=== PATIENT | male | born 1970 | race Caucasian/White ===

== ENCOUNTER 2019-10-29 23:01 | Inpatient (IN) | payer OTHER ==
[~2019-10-29] VITALS: Ht 190.5 cm; Wt 140.6 kg
[2019-10-29 23:31] LABS: BASO # 0.1 10^3/uL (0.0-0.2); BASO % 0.6 % (0.0-1.0); EOS # 0.3 10^3/uL (0.0-0.5); EOS % 1.8 % (0.0-3.0); HEMATOCRIT 53.5 % (42.0-52.0); HEMOGLOBIN 17.8 g/dl (13.5-17.5); LYMPH # 4.4 10^3/uL (1.5-5.0); LYMPH % 27.7 % (24.0-44.0); MEAN CORPUSCULAR HEMOGLOBIN 28.4 pg (27.0-33.0); MEAN CORPUSCULAR HGB CONC 33.3 g/dl (32.0-36.5); MEAN CORPUSCULAR VOLUME 85.3 fl (80.0-96.0); MONO % 6.1 % (0.0-5.0); NEUTROPHILS % 63.1 % (36.0-66.0); PLATELET COUNT, AUTOMATED 220 10^3/uL (150-450); RED BLOOD COUNT 6.27 10^6/uL (4.30-6.10); WHITE BLOOD COUNT 15.8 10^3/uL (4.0-10.0)
[2019-10-30] MEDS ORDERED: NS 500 ML IV ONE
--- NOTE | 2019-10-30 00:16 | REPVR ---
PROCEDURE INFORMATION: Exam: CT Head Without Contrast Exam date and time: 10/29/2019 11:53 PM Age: 48 years old Clinical indication: Altered mental status/memory loss; Confusion or disorientation; Additional info: Dysarthria TECHNIQUE: Imaging protocol: Computed tomography of the head without contrast. Radiation optimization: All CT scans at this facility use at least one of these dose optimization techniques: automated exposure control; mA and/or kV adjustment per patient size (includes targeted exams where dose is matched to clinical indication); or iterative reconstruction. COMPARISON: No relevant prior studies available. FINDINGS: Brain: No intracranial hemorrhage or extra-axial fluid collection. No evidence of mass effect or midline shift. Sanchez-white matter differentiation is intact. Ventricles: No ventriculomegaly. Bones/joints: No acute osseus lesion or fracture. Sinuses: Unremarkable as visualized. Mastoid air cells: Unremarkable. Soft tissues: Unremarkable. IMPRESSION: No acute intracranial pathology. Electronically signed by: Chet Callahan On 10/30/2019 00:15:58 AM
[2019-10-30 00:45] LABS: ALT/SGPT 38 U/L (12-78); BILIRUBIN,DIRECT 0.1 MG/DL (0.0-0.2); BILIRUBIN,TOTAL 0.4 MG/DL (0.2-1.0); BLOOD UREA NITROGEN 16 MG/DL (7-18); CALCIUM LEVEL 9.1 MG/DL (8.5-10.1); CARBON DIOXIDE LEVEL 25 MEQ/L (21-32); CHLORIDE LEVEL 107 MEQ/L (98-107); CREATININE FOR GFR 1.02 MG/DL (0.70-1.30); ETHYL ALCOHOL (ETHANOL) < 0.003 % (0.000-0.010); GLOMERULAR FILTRATION RATE > 60.0 (>60); GLUCOSE, FASTING 156 MG/DL (70-100); POTASSIUM SERUM 3.7 MEQ/L (3.5-5.1); SODIUM LEVEL 138 MEQ/L (136-145)
[2019-10-30] MEDS ORDERED: ASPIRIN 325 MG TAB PO ONE (01:30)
[2019-10-30] MEDS ORDERED: DULO1CAP5 PO (01:48)
[2019-10-30] MEDS ORDERED: VENL37.598 PO (01:48)
[2019-10-30] MEDS ORDERED: IRBE300T7 PO (01:48)
[2019-10-30] MEDS ORDERED: AMLO1TAB25 PO (01:48)
[2019-10-30] MEDS ORDERED: ROSU40TA4 PO (01:48)
[2019-10-30] MEDS ORDERED: OMEP-221 PO (01:48)
[2019-10-30] MEDS ORDERED: GABA600T4 PO (01:48)
[2019-10-30] MEDS ORDERED: METO1TAB33 PO (01:48)
[2019-10-30] MEDS ORDERED: METF-838 PO (01:48)
[2019-10-30] MEDS ORDERED: STEG15TA PO (01:48)
[2019-10-30] MEDS ORDERED: XARE10TA PO (01:48)
[2019-10-30] MEDS ORDERED: D31000TA2 PO (02:06)
[2019-10-30] MEDS ORDERED: OMEG10002 PO (02:06)
[2019-10-30] MEDS ORDERED: OMEPRAZOLE 20 MG CAP PO ONE (02:15)
--- NOTE | 2019-10-30 02:19 | HPEPDOC ---
General Date of Admission 10/26/19 Date of Service: Oct 30, 2019 Chief Complaint The patient is a 48-year-old male admitted with a reason for visit of S/S Possible Stroke. Source: Patient Exam Limitations: No limitations Timing/Duration: 4-6 hours Severity: Moderate History of Present Illness Patient's 48 years old male with past medical history of of unprovoked DVT, PE, IVC filter on anticoagulation, obesity, hypertension, diabetes, obstructive sleep apnea presented to the hospital with expressive aphasia. Patient stated that around 9-10 pm he developed difficulties to articulate, his speech became garbled, he couldn't express his thoughts. Expressive aphasia was intermittent and continues around 10-15 minutes. Also he noted some paresthesia of his right hand. In emergency room he also developed expressive aphasia associated with forgetfulness, he did not remember his phone number and name of his kids. Patient was not able to subtract 7 from 100. In ER patient was found to have head CT negative for acute stroke or bleeding. Patient has leukocytosis of 16, glucose level of 156. Patient denied fever, chills, nausea, vomiting, diarrhea or dysuria Home Medications Scheduled Amlodipine Besylate (Amlodipine Besylate) 10 Mg Tablet, 10 MG PO DAILY, (Reported) Cholecalciferol (Vitamin D3) (Vitamin D3) 1,000 Unit Tablet, 1,000 UNITS PO DAILY, (Reported) Duloxetine Hcl (Duloxetine HCl) 30 Mg Capsule.dr, 30 MG PO QHS, (Reported) Ertugliflozin Pidolate (Steglatro) 15 Mg Tablet, 15 MG PO DAILY, (Reported) Gabapentin (Gabapentin) 600 Mg Tablet, 600 MG PO QHS, (Reported) Irbesartan (Irbesartan) 300 Mg Tablet, 300 MG PO DAILY, (Reported) Metformin HCl (Metformin HCl ER) 500 Mg Tab.er.24h, 1,000 MG PO BID, (Reported) Metoprolol Succinate (Metoprolol Succinate) 100 Mg Tab.er.24h, 100 MG PO DAILY, (Reported) Aragon-3/Dha/Epa/Fish Oil (Fish Oil 1,000 mg Softgel) 1 Each Capsule, 1 CAP PO BID, (Reported) Omeprazole (Omeprazole) 40 Mg Capsule.dr, 40 MG PO DAILY, (Reported) Rivaroxaban (Xarelto) 10 Mg Tablet, 10 MG PO QHS, (Reported) Rosuvastatin Calcium (Rosuvastatin Calcium) 40 Mg Tablet, 40 MG PO DAILY, (Reported) Allergies Coded Allergies: No Known Allergies (Unverified , 10/29/19) Past Medical History Medical History Diabetes type 2, hypertension, pulmonary emboli, DVT, obstructive sleep apnea, obesity Surgical History IVC filter placement Family History Father from heart attack, mother has diabetes Social History * Smoker: current smoker, greater than 1 pack/day Alcohol: Denies Drugs: denies A-FIB/CHADSVASC A-FIB History Current/History of A-Fib/PAF?: No Current PO Anticoag Therapy: No Review of Systems Constitutional: Denies: Chills, Fever, Malaise Eyes: Denies: Pain ENT: Denies: Head Aches Skin: Denies: Rash Pulmonary: Denies: Dyspnea Cardiovascular: Denies: Chest Pain Gastrointestinal: Denies: Nausea, Vomiting Genitourinary: Denies: Dysuria, Frequency Hematologic: Denies: Bruising, Bleeding Excessively Endocrine: Denies: Polydipsia, Polyphagia Musculoskeletal: Denies: Neck Pain Neurological: Reports: Change in speech (expressive aphasia), Confusion Psych: Reports: Mood Normal Physical Examination General Exam: Positive: Alert, Cooperative Eye Exam: Positive: PERRLA ENT Exam: Positive: Atraumatic Neck Exam: Positive: Supple; Negative: JVD Chest Exam: Positive: Clear to auscultation Heart Exam: Positive: Rate Normal Telemetry: Positive: No significant arrhythmia Abdomen Exam: Positive: Normal bowel sounds Extremity Exam: Negative: Clubbing, Cyanosis Skin Exam: Positive: Nl turgor and temperature Neuro Exam: Positive: Normal Gait, Strength at 5/5 X4 ext Psych Exam: Positive: Mental status NL, Oriented x 3; Negative: Memory Intact (did not remember phone number of his and name of his kids. Patient was not able to substract 7 from 100, patient was not able to say world backwards) Vital Signs Vital Signs Date Time Temp Pulse Resp B/P (MAP) Pulse Ox O2 Delivery O2 Flow Rate FiO2 10/30/19 00:46 101 93 10/30/19 00:45 98.3 18 128/71 (90) 10/29/19 23:12 Room Air Laboratory Data Labs 24H Laboratory Tests 2 10/29/19 23:24: Immature Granulocyte % (Auto) 0.7, Neutrophils (%) (Auto) 63.1, Lymphocytes (%) (Auto) 27.7, Monocytes (%) (Auto) 6.1H, Eosinophils (%) (Auto) 1.8, Basophils (%) (Auto) 0.6, Neutrophils # (Auto) 10.0H, Lymphocytes # (Auto) 4.4, Monocytes # (Auto) 1.0H, Eosinophils # (Auto) 0.3, Basophils # (Auto) 0.1, Nucleated Red Blood Cells % (auto) 0.0, Anion Gap 6L, Glomerular Filtration Rate > 60.0, Calcium Level 9.1, Total Bilirubin 0.4, Direct Bilirubin 0.1, Aspartate Amino Transf (AST/SGOT) 21, Alanine Aminotransferase (ALT/SGPT) 38, Alkaline Phosp hatase 91, Total Protein 7.0, Albumin 4.0, Albumin/Globulin Ratio 1.3, Thyroid Stimulating Hormone (TSH) 4.630H, Ethyl Alcohol Level < 0.003 10/29/19 23:31: POC Glucose (Misc Panel) 162H, POC Sodium (Misc Panel) 140, POC Potassium (Misc Panel) 3.6, POC Chloride (Misc Panel) 103, POC Total CO2 (Misc Panel) 21.0L, POC Blood Urea Nitrogen (Misc Panel 16, POC Ionized Calcium (Misc Panel) 4.8, POC Creatinine (Misc Panel) 0.9, POC Hematocrit (Misc Panel) 53.0H 10/29/19 23:32: POC Troponin I (Misc) 0.00 CBC/BMP Laboratory Tests 10/29/19 23:24 Assessment/Plan Patient's 48 years old male with past medical history of of unprovoked DVT, PE, IVC filter on anticoagulation, obesity, hypertension, diabetes, obstructive sleep apnea presented to the hospital with expressive aphasia. Patient stated that around 9-10 pm he developed difficulties to articulate, his speech became garbled, he couldn't express his thoughts. Expressive aphasia was intermittent and continues around 10-15 minutes. Also he noted some paresthesia of his right hand. In emergency room he also developed expressive aphasia associated with forgetfulness, he did not remember his phone number and name of his kids. Patient was not able to subtract 7 from 100. In ER patient was found to have head CT negative for acute stroke or bleeding. Patient has leukocytosis of 16, glucose level of 156. Patient denied fever, chills, nausea, vomiting, diarrhea or dysuria Problems (1) CVA (cerebral vascular accident) Status: Acute Problem Text: Patient developed intermittent expressive aphasia associated with forgetfulness Patient has multiple risk factors for stroke: He is active smoker, obese, he has obstructive sleep apnea, hypertension Will proceed with MRI, MRA, Doppler ultrasound of carotid arteries Echo I talked to Dr. Taveras, he recommended stroke work up an EEG Aspirin 325 mg Neurological check every 4 hours Patient is not candidate for TPA due to oral targeted anticoagulation (2) Diabetes type 2, controlled Status: Chronic Problem Text: Insulin sliding scale Diabetes diet (3) Hypertension Status: Chronic Problem Text: Blood pressures under control continue home meds (4) Leukocytosis Status: Acute Problem Text: Most likely reactive Patient afebrile, normotensive, looks nontoxic Blood culture ordered Plan / VTE VTE Prophylaxis Ordered?: Yes APRYL LAND DO Oct 30, 2019 02:19
[2019-10-30 02:35] LABS: APPEARANCE, URINE CLEAR (CLEAR); BACTERIA, URINE AUTO NEGATIVE (NEGATIVE); BILIRUBIN, URINE AUTO NEGATIVE (NEGATIVE); BLOOD, URINE BLOOD NEGATIVE (NEGATIVE); COLOR, URINE YELLOW (YELLOW); GLUCOSE, URINE (UA) AUTO 3+ mg/dL (NEGATIVE); KETONE, URINE AUTO NEGATIVE (NEGATIVE); LEUKOCYTE ESTERASE, URINE AUTO NEGATIVE (NEGATIVE); MUCUS, URINE SMALL (NEGATIVE); NITRITE, URINE AUTO NEGATIVE (NEGATIVE); PROTEIN, URINE AUTO NEGATIVE (NEGATIVE); RBC, URINE AUTO 0 /HPF (0-3); SPECIFIC GRAVITY URINE AUTO 1.032 (1.002-1.035); SQUAMOUS EPITHELIAL CELL UR AU 0 /HPF (0-6); UROBILINOGEN, URINE AUTO 0.2 mg/dL (0.0-2.0); WBC, URINE AUTO 0 /HPF (0-3)
[2019-10-30] MEDS ORDERED: ISOVUE-370 76% 100ML VIAL As Ordered ONE (02:38)
[2019-10-30 02:43] LABS: INR 1.14; PROTHROMBIN TIME 14.3 SECONDS (11.8-14.0)
[2019-10-30 03:05] LABS: AMPHETAMINES LEVEL URINE NEGATIVE (NEGATIVE); BARBITURATES URINE NEGATIVE (NEGATIVE); BENZODIAZEPINES URINE NEGATIVE (NEGATIVE); CANNABINOIDS URINE NEGATIVE (NEGATIVE); COCAINE METABOLITE URINE NEGATIVE (NEGATIVE); METHADONE URINE NEGATIVE (NEGATIVE); OPIATES URINE NEGATIVE (NEGATIVE); PHENCYCLIDINE URINE NEGATIVE (NEGATIVE)
--- NOTE | 2019-10-30 03:18 | REPVR ---
PROCEDURE INFORMATION: Exam: CT Angiography Chest With Contrast Exam date and time: 10/30/2019 2:32 AM Age: 48 years old Clinical indication: Dyspnea; Additional info: Dysp TECHNIQUE: Imaging protocol: Computed tomographic angiography of the chest with intravenous contrast. 3D rendering: MIP and/or 3D reconstructed images were created by the technologist. Radiation optimization: All CT scans at this facility use at least one of these dose optimization techniques: automated exposure control; mA and/or kV adjustment per patient size (includes targeted exams where dose is matched to clinical indication); or iterative reconstruction. Contrast material: ISO; Contrast volume: 75 ml; Contrast route: INTRAVENOUS (IV); COMPARISON: No relevant prior studies available. FINDINGS: Pulmonary arteries: Opacification of the aorta with unopacified pulmonary arteries with opacification of incoming venous supply consistent with interrupted injection. The main pulmonary artery measures 32 mm. Pulmonary embolism is not excluded. Aorta: The ascending thoracic aorta measures 33 mm. Lungs: Subpleural nodule in the posterior left lower lobe measuring 5 x 7 mm. Calcified granuloma in the left lower lobe. Pleural space: Unremarkable. No pneumothorax. No pleural effusion. Heart: Unremarkable. No cardiomegaly. No pericardial effusion. Lymph nodes: Unremarkable. No enlarged lymph nodes. Bones/joints: Unremarkable. No acute fracture. Soft tissues: Unremarkable. IMPRESSION: 1. Unopacified pulmonary arteries consistent with interrupted injection. Pulmonary embolism is not excluded. 2. Subpleural left lower lobe nodule measuring 5 x 7 mm. For patients at low risk (minimal or absent history of smoking and of other known risk factors), recommend CT at 6-12 months, then consider CT at 18-24 months. For patients at high risk (history of smoking or of other known risk factors), recommend CT at 6-12 months, then CT at 18-24 months. (Thong et al., Fleischner Society, 2017). 3. Evidence of old granulomatous disease. Electronically signed by: Suresh Boone On 10/30/2019 03:18:16 AM
[2019-10-30 04:50] VITALS: BP 147/96
--- NOTE | 2019-10-30 04:59 | REPVR ---
PROCEDURE INFORMATION: Exam: US Duplex Bilateral Extracranial Arteries Exam date and time: 10/30/2019 4:44 AM Age: 48 years old Clinical indication: Altered mental status/memory loss; Additional info: CVA TECHNIQUE: Imaging protocol: Real-time Duplex ultrasound scan of the bilateral carotid and vertebral arteries combining dietz scale, color Doppler and spectral waveform analysis. Bilateral exam. COMPARISON: CT Head without contrast 10/30/2019 12:00 AM FINDINGS: Right common carotid artery: The right common carotid artery proximally demonstrates normal Doppler waveforms and velocity of 95 cm/s, mid velocity of 70 cm/s and distal velocity of 53 cm/s. Right internal carotid artery: The right proximal internal carotid artery demonstrates normal waveforms and velocity of 44 cm/s and distal velocity is 36 cm/s. Right ICA/CCA ratio: The right ICA/CCA ratio is 0.47. Right external carotid artery: The right external carotid artery demonstrates normal Doppler waveforms and velocity of 60 cm/s. Right vertebral artery: The right vertebral artery demonstrates antegrade flow with velocity of 31 cm/s. Left common carotid artery: The left common carotid artery proximally demonstrates normal Doppler waveforms with velocity of 131 cm/s, mid velocity of 104 cm/s and distal velocity of 64 cm/s. Left internal carotid artery: The left proximal internal carotid artery demonstrates normal Doppler waveforms with velocity of 51 cm/s, mid velocity of 65 cm/s and distal velocity of 72 cm/s. Left ICA/CCA ratio: The left ICA/CCA ratio is 0.55. Left external carotid artery: The left external carotid artery demonstrates normal Doppler waveforms with velocity of 53 cm/s. Left vertebral artery: The left vertebral artery demonstrates antegrade flow with velocity of 35 cm/s. IMPRESSION: Negative carotid Doppler evaluation without evidence of hemodynamically significant stenosis. REFERENCES: SRU CRITERIA. The degree of internal carotid artery stenosis is based on criteria defined by the Society of Radiologists in Ultrasound (SRU). Normal is no stenosis. Mild is less than 50% stenosis. Moderate is 50-69% stenosis. Severe is greater than 69% stenosis to near occlusion. Near occlusion is a markedly narrowed lumen. Total occlusion is no detectable patent lumen. Electronically signed by: Suresh Boone On 10/30/2019 04:58:34 AM
[2019-10-30] MEDS ORDERED: DEXTROSE 50% 50 ML SYRINGE IV PRN (07:00)
[2019-10-30] MEDS ORDERED: GLUCOSE 4GM CHEW TABLET PO PRN (07:00)
[2019-10-30] MEDS ORDERED: GLUCAGON INJ 1MG VIAL SC PRN (07:00)
[2019-10-30] MEDS: ASPIRIN 81 MG CHEW TABLET PO SCH (08:10)
[2019-10-30] MEDS: VITAMIN D 1,000 INTERNATIONAL UNITS TABLET PO SCH (08:11)
[2019-10-30] MEDS: OMEGA-3 1000MG CAPSULE PO SCH ×2 (08:11→20:45)
[2019-10-30] MEDS: ROSUVASTATIN 10 MG TAB (CRESTOR) PO SCH (08:11)
[2019-10-30] MEDS: HumaLOG INSULIN (NovoLOG) PER UNIT SC SCH ×4 (08:13→20:39)
[2019-10-30] MEDS: METOPROLOL SUCC (TopROL XL) 100MG *XL* TAB PO SCH (08:13)
--- NOTE | 2019-10-30 09:51 | ECGEPIP ---
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
[2019-10-30] MEDS: IRBESARTAN 150MG TAB PO SCH (12:16)
[2019-10-30 12:27] LABS: HEMATOCRIT 51.4 % (42.0-52.0); HEMOGLOBIN 16.6 g/dl (13.5-17.5); MEAN CORPUSCULAR HEMOGLOBIN 28.2 pg (27.0-33.0); MEAN CORPUSCULAR HGB CONC 32.3 g/dl (32.0-36.5); MEAN CORPUSCULAR VOLUME 87.3 fl (80.0-96.0); PLATELET COUNT, AUTOMATED 204 10^3/uL (150-450); RED BLOOD COUNT 5.89 10^6/uL (4.30-6.10); WHITE BLOOD COUNT 10.1 10^3/uL (4.0-10.0)
[2019-10-30 12:41] LABS: BLOOD UREA NITROGEN 14 MG/DL (7-18); CALCIUM LEVEL 8.8 MG/DL (8.5-10.1); CARBON DIOXIDE LEVEL 26 MEQ/L (21-32); CHLORIDE LEVEL 107 MEQ/L (98-107); CREATININE FOR GFR 0.95 MG/DL (0.70-1.30); GLOMERULAR FILTRATION RATE > 60.0 (>60); GLUCOSE, FASTING 141 MG/DL (70-100); POTASSIUM SERUM 4.2 MEQ/L (3.5-5.1); SODIUM LEVEL 140 MEQ/L (136-145)
[2019-10-30 14:00] VITALS: BP 130/88
--- NOTE | 2019-10-30 17:14 | REP ---
CT brain: 10/30/2019. Indication: Stroke. Technique: Unenhanced axial CT images of the brain were obtained from skull base to vertex. Comparison: CT brain dated 10/30/2019. Findings: There is no acute intracranial hemorrhage or mass effect. Small area of hypoattenuation is present within the left frontal parietal region. There is no hydrocephalus. Impression: Small evolving the left MCA infarction without hemorrhage or mass effect. Electronically Signed by Igor Campbell DO 10/30/2019 05:06 P
[2019-10-30] MEDS: RIVAROXABAN 10 MG TAB (XARELTO) PO SCH (20:45)
[2019-10-30] MEDS: GABAPENTIN 300 MG CAP PO SCH (20:45)
[2019-10-30] MEDS: DULoxetine 30 MG CAP (CYMBALTA) PO SCH (20:45)
[2019-10-30 21:00] VITALS: BP 122/74
[2019-10-31 06:00] VITALS: BP 141/91
[2019-10-31 06:06] LABS: HEMATOCRIT 51.9 % (42.0-52.0); MEAN CORPUSCULAR HEMOGLOBIN 28.2 pg (27.0-33.0); MEAN CORPUSCULAR HGB CONC 32.8 g/dl (32.0-36.5); MEAN CORPUSCULAR VOLUME 86.1 fl (80.0-96.0); PLATELET COUNT, AUTOMATED 199 10^3/uL (150-450); RED BLOOD COUNT 6.03 10^6/uL (4.30-6.10); WHITE BLOOD COUNT 11.2 10^3/uL (4.0-10.0)
[2019-10-31 06:36] LABS: ALBUMIN 3.7 GM/DL (3.2-5.2); ALT/SGPT 35 U/L (12-78); BILIRUBIN,TOTAL 0.5 MG/DL (0.2-1.0); BLOOD UREA NITROGEN 13 MG/DL (7-18); CALCIUM LEVEL 8.7 MG/DL (8.5-10.1); CARBON DIOXIDE LEVEL 27 MEQ/L (21-32); CHLORIDE LEVEL 106 MEQ/L (98-107); CREATININE FOR GFR 0.86 MG/DL (0.70-1.30); GLOMERULAR FILTRATION RATE > 60.0 (>60); GLUCOSE, FASTING 140 MG/DL (70-100); MAGNESIUM LEVEL 1.9 MG/DL (1.8-2.4); POTASSIUM SERUM 4.4 MEQ/L (3.5-5.1); SODIUM LEVEL 136 MEQ/L (136-145); TOTAL PROTEIN 6.6 GM/DL (6.4-8.2)
[2019-10-31] MEDS: IRBESARTAN 150MG TAB PO SCH (08:10)
[2019-10-31] MEDS: METOPROLOL SUCC (TopROL XL) 100MG *XL* TAB PO SCH (08:10)
[2019-10-31] MEDS: ROSUVASTATIN 10 MG TAB (CRESTOR) PO SCH (08:11)
[2019-10-31] MEDS: OMEGA-3 1000MG CAPSULE PO SCH ×2 (08:11→20:50)
[2019-10-31] MEDS: VITAMIN D 1,000 INTERNATIONAL UNITS TABLET PO SCH (08:11)
[2019-10-31] MEDS: HumaLOG INSULIN (NovoLOG) PER UNIT SC SCH ×4 (08:11→21:00)
[2019-10-31] MEDS: ASPIRIN 81 MG CHEW TABLET PO SCH (08:11)
[2019-10-31] MEDS ORDERED: ISOVUE-370 76% 100ML VIAL As Ordered ONE (08:34)
--- NOTE | 2019-10-31 10:32 | EEG ---
DATE OF PROCEDURE: 10/30/2019 REFERRING PHYSICIAN: Dr. Den Pena DIAGNOSIS: Difficulty speaking, difficulty recognizing himself and others with multiple episodes lasting up to 1-2 hours. This EEG was done to rule out epileptic potential. The patient is currently taking aspirin, Cymbalta, gabapentin, Crestor, Xarelto, etc. TECHNICAL DESCRIPTION: This digital EEG was recorded by 21 scalp, ear and two EKG electrodes and was reviewed in bipolar and referential montages following reformatting 10-20 international electrode placement system. INTERPRETATION: The patient was noted to be in awake and drowsy states during this EEG. Resting awake background rhythm consisted of well-formed posterior dominant rhythm with anterior/posterior gradient comprising of 9 Hz alpha activity measuring 15-60 microvolts in amplitude which was symmetric and reactive to eye opening. Attenuation of posterior dominant rhythm was seen during transition into drowsiness. Stage I and II sleep were reviewed and were symmetric bilaterally. Hyperventilation and photic stimulation remained unremarkable. EKG revealed normal sinus rhythm. No focal, lateralizing or epileptiform abnormalities were seen. No relevant clinical activity was noted. CONCLUSION: This EEG in awake, drowsy states, stage I and II sleep is within normal limits.
--- NOTE | 2019-10-31 11:01 | CR ---
DATE OF CONSULTATION: 10/30/2019 REFERRING PHYSICIAN: Dr. Andre Pena REASON FOR CONSULTATION: Altered speech and mentation. HISTORY OF PRESENT ILLNESS: Luis Fernando Hansen is a 48-year-old man with history of deep venous thrombosis (DVT), pulmonary embolus embolism, status post inferior vena cava (IVC) filter placement, on anticoagulation, diabetes, untreated sleep apnea, presented to [facility] with several episodes of difficulty speaking, articulating and his speech became garbled. He was unable to express his thoughts. His symptoms lasted for 1-2 hours and he had several episodes. He states that he had 3 or 4 episodes last night and has been fine since this morning. He also felt a strange sensation in his right arm and then left arm. He states that he was unable to recognize others and himself at times. He became confused and forgetful. He denied any headache, neck or back pain. He denies numbness, weakness of his legs. He did not think that he had any difficulty walking but his thinks that he did. He denies falls or loss of consciousness. He denies any seizure activity. PAST MEDICAL HISTORY: Untreated sleep apnea with intolerance to continuous positive airway pressure (CPAP), chronic tobacco use, hypertension, diabetes, obesity, DVT with pulmonary embolism, and IVC filter placement, on anticoagulation, and patient denies noncompliance with his medications. HOME MEDICATIONS: - amlodipine 10 mg by mouth daily - aspirin 81 mg by mouth daily - vitamin D3 1000 units by mouth daily - Cymbalta 30 mg by mouth daily - Steglatro 15 mg by mouth daily - gabapentin 600 mg by mouth at bedtime - irbesartan 300 mg by mouth daily - metformin 1000 mg by mouth twice a day - metoprolol 100 mg by mouth daily - Prilosec 40 mg by mouth daily - Xarelto 10 mg by mouth daily - Crestor 40 mg by mouth daily ALLERGIES: NONE. SOCIAL HISTORY: The patient smoked one-pack per day or more. FAMILY HISTORY: Father had heart disease and mother with history of diabetes. REVIEW OF SYSTEMS: All systems were reviewed and found to be noncontributory except as mentioned in history of present illness. PHYSICAL EXAMINATION: Blood pressure 130/88, pulse 93, respiratory rate 18, temperature 97.9. Oxygen saturation 93% on room air. Heart: Regular rate and rhythm. Lungs: Clear to auscultation. Abdomen: Soft, nontender, nondistended. No pedal edema. No musculoskeletal abnormalities. No rash. No signs of meningeal irritation. The patient is awake, alert, oriented to place, person and time. Normal speech, comprehension, and repetition. Extraocular muscles are intact. No facial weakness. Tongue and uvula are midline. 5/5 strength in all four extremities. Sensory and deep tendon reflexes were not performed. Gait is normal. DIAGNOSTIC STUDIES: CT scan of head was unremarkable. Complete blood count (CBC) showed hemoglobin 17.8, WBCs 15.8. TSH 4.6. Blood alcohol level less than 0.003. His EEG was normal. ASSESSMENT: 1. Episodes of slurred speech and altered mentation. 2. There is concern for transient ischemic attack (TIA) and transient global amnesia. PLAN: 1. CT angiography of head and neck with contrast. He cannot have MRI scans due to his IVC filter. 2. Repeat CT scan of head. 3. Aspirin 81 mg by mouth daily and Xarelto 10 mg by mouth daily. 4. Continue Crestor 40 mg by mouth daily.
--- NOTE | 2019-10-31 11:30 | REP ---
Intra and extracranial CTA: 10/31/2019. Indication: Stroke. Technique: High resolution axial CT images of the intra and extracranial circulations were performed following the IV administration of iodinated contrast with coronal, sagittal and 3-D reconstructions provided. Comparison: None. Findings: There is no intracranial aneurysm, high-grade stenosis, occlusion or AVM. There is no hemodynamically significant extracranial ICA stenosis by NASCET criteria or additional significant abnormalities of the extracranial carotid or vertebral arteries. Impression: No high-grade stenosis or vessel occlusion. Electronically Signed by Igor Campbell DO 10/31/2019 11:22 A
[2019-10-31 14:00] VITALS: BP 143/90
--- NOTE | 2019-10-31 14:12 | IPNPDOC ---
Date Seen The patient was seen on 10/31/19. Progress Note SUBJECTIVE: 48-year-old male with past medical history of diabetes mellitus, hypertension and obstructive sleep apnea, was admitted for CVA. CT head yesterday showed evolving infarct of left MCA. Patient initially had dysarthria and difficulty with memory/recognizing names/words. Symptoms are resolving, currently comfortable in bed without any complaints. He denies any chest pain, nausea, vomiting, diarrhea or constipation. He does report mild dyspnea and requiring supplemental oxygen via nasal cannula at this time. 10 point review of system is negative so for above PHYSICAL EXAMINATION: VITAL SIGNS: Please see below. GENERAL: Obese HEENT: Normocephalic, atraumatic, moist mucous membranes NECK: Supple CARDIOVASCULAR EXAMINATION: S1, S2, no murmurs RESPIRATORY EXAMINATION: Diminished, scattered rhonchi, no wheezing ABDOMINAL EXAMINATION: Soft, nontender, nondistended, positive bowel sounds EXTREMITIES: Range of motion intact SKIN: No rash NEUROLOGICAL EXAMINATION: Alert and oriented 3, no focal deficits PSYCHIATRIC EXAMINATION: Calm and cooperative LABORATORY DATA, IMAGING STUDIES, MICROBIOLOGY: Please see below. ASSESSMENT AND PLAN: 48-year-old male with multiple medical comorbidities as admitted for left MCA CVA PROBLEMS: 1. CVA: Repeat CT head showing evolving infarct of left MCA, neurology eval appreciated, continue aspirin and statin.. 2. DVT/PE: History of IVC filter, continue Xarelto. 3. Diabetes mellitus: Continue sliding scale insulin coverage with meals and at bedtime. 4. Hypertension: Continue Norvasc, Avapro and metoprolol 5. DVT prophylaxis: Xarelto VS, I&O, 24H, Fishbone Vital Signs/I&O Vital Signs Date Time Temp Pulse Resp B/P (MAP) Pulse Ox O2 Delivery O2 Flow Rate FiO2 10/31/19 08:10 86 142/91 10/31/19 06:00 97.5 14 95 Venturi Mask 13.0 10/29/19 23:30 96 l I&O- Last 24 Hours up to 6 AM 10/31/19 06:00 Intake Total 1620 ml Output Total 650 ml Balance 970 ml Laboratory Data 24H LABS Laboratory Tests 2 10/30/19 16:34: Bedside Glucose (Misc Panel) 161H 10/30/19 20:35: Bedside Glucose (Misc Panel) 151H 10/31/19 05:45: Nucleated Red Blood Cells % (auto) 0.0, Anion Gap 3L, Glomerular Filtration Rate > 60.0, Calcium Level 8.7, Magnesium Level 1.9, Total Bilirubin 0.5, Aspartate Amino Transf (AST/SGOT) 19, Alanine Aminotransferase (ALT/SGPT) 35, Alkaline Phosphatase 83, Total Protein 6.6, Albumin 3.7, Albumin/Globulin Ratio 1.3 10/31/19 11:12: Bedside Glucose (Misc Panel) 153H CBC/BMP Laboratory Tests 10/31/19 05:45 Microbiology Microbiology 10/30/19 Blood Culture - Preliminary, Resulted No growth after 24 hours . All specim... 10/30/19 Blood Culture - Preliminary, Resulted No growth after 24 hours . All specim... KHURRAM MARQUEZ MD Oct 31, 2019 14:12
--- NOTE | 2019-10-31 17:29 | ECHO ---
DATE OF STUDY: 10/31/2019 REFERRING PHYSICIAN: Dr. Andre Pena INDICATION: Acute stroke. HEIGHT: 191 cm WEIGHT: 140 kg 2-D MEASUREMENTS: Aortic root: 3.7 cm Left atrium: 4.1 cm Ventricular septum: 1.34 cm Posterior wall: 1.32 cm Left ventricle diastole: 5.35 cm Aortic annulus: 2.2 cm Inferior vena cava: 2.5 cm (probably more than 50% respiratory variation) DOPPLER MEASUREMENTS: No aortic regurgitation. No aortic stenosis. Aortic valve velocity: 120 cm/sec LVOT velocity: 89.5 cm/sec No mitral regurgitation. Mitral E velocity: 59.2 cm/sec Mitral A velocity: 68.1 cm/sec No tricuspid regurgitation. No pulmonic regurgitation. Pulmonary artery systolic pressure: 28 mmHg MITRAL ANNULAR TISSUE DOPPLER: E prime septal: 6.5 cm/sec E prime lateral: 9.0 cm/sec DESCRIPTION: The rhythm was sinus. This was a moderately technically difficult echocardiogram. This was a 2-D, M-mode, color flow Doppler and pulsed wave Doppler examination and included mitral annular tissue Doppler. CONCLUSIONS: 1. Mild concentric left ventricular hypertrophy. Normal regional LV wall motion and wall thickening. Normal LV systolic function. Left ventricular ejection fraction (LVEF) 60% by visual estimate. Grade 1 LV diastolic dysfunction (impaired relaxation filling pattern). 2. Otherwise, normal appearing echocardiogram-Doppler. 3. Moderately technically difficult echocardiogram-Doppler.
[2019-10-31] MEDS: GABAPENTIN 300 MG CAP PO SCH (20:49)
[2019-10-31] MEDS: RIVAROXABAN 10 MG TAB (XARELTO) PO SCH (20:49)
[2019-10-31] MEDS: DULoxetine 30 MG CAP (CYMBALTA) PO SCH (20:49)
[2019-10-31 22:00] VITALS: BP 139/76
[2019-11-01 06:00] VITALS: BP 130/81
[2019-11-01] MEDS: HumaLOG INSULIN (NovoLOG) PER UNIT SC SCH (06:52)
[2019-11-01] MEDS: ROSUVASTATIN 10 MG TAB (CRESTOR) PO SCH (08:51)
[2019-11-01] MEDS: OMEGA-3 1000MG CAPSULE PO SCH (08:51)
[2019-11-01] MEDS: ASPIRIN 81 MG CHEW TABLET PO SCH (08:51)
[2019-11-01] MEDS: VITAMIN D 1,000 INTERNATIONAL UNITS TABLET PO SCH (08:51)
[2019-11-01 08:53] VITALS: BP 140/89
[2019-11-01] MEDS: IRBESARTAN 150MG TAB PO SCH (08:53)
[2019-11-01] MEDS: METOPROLOL SUCC (TopROL XL) 100MG *XL* TAB PO SCH (08:54)
[2019-11-01] MEDS ORDERED: ECOT81TA5 PO (10:28)
--- NOTE | 2019-11-01 12:03 | DS.PDOC ---
Discharge Summary General Date of Admission Nov 01, 2019 at 08:21 Date of Discharge 11/01/19 Attending Physician: MIGUEL ÁNGEL CRUZ MD Specialist/Consultants Involve: OSWALD COLBY MD Discharge Summary PROCEDURES PERFORMED DURING STAY: [None]. ADMITTING DIAGNOSES: 1. Cerebral Vascular Accident 2. Diabetes Mellitus Type 2 3. Hypertension 4. Smoking DISCHARGE DIAGNOSES: 1. Cerebral Vascular Accident affecting the Left MCA territory 2. Diabetes Mellitus Type 2 3. Hypertension 4. Smoking COMPLICATIONS/CHIEF COMPLAINT: CVA. HISTORY OF PRESENT ILLNESS: Patient is a 48 year old male with a past medical history significant for unprovoked recurrent DVT, PE s/p IVC filter on Xarelto, morbid obesity, hypertension, diabetes mellitus type 2, and ELIAS noncompliant with CPAP who presented to the [facility] ER with complaint of expressive aphasia. He had stated that he had a sudden onset of difficulty with articulation of his speech. His speech was noted to be garbled and he was unable to express his thoughts. This had lasted approximately 10-15 minutes. At the time he did note some paresthesia of his right hand. He otherwise denied any weakness in his legs or arms. The patient presented to the ER where he had developed additional expressive aphasia as well as memory issues. He was unable to recall his wives phone number or names of his children. He received a CT scan of the head which was negative for any acute stroke or bleeding. The patient was admitted for further evaluation and management HOSPITAL COURSE: On admission, the patient was seen and evaluated by the on-call Neurologist. Recommendations were made to have the patient worked up for a stroke. Unfortunately he was not able to receive an MRI due to his IVC filter. He was found not to be a candidate for tissue plasminogen activator given his current use of oral anticoagulation. He received Carotid ultrasound and CTA of the neck both of which did not demonstrate any high grade stenosis. Intracranial and extracranial CTA did not demonstrate any intracranial aneurysm, high grade stenosis, occlusion or AVM. His repeat CT of the head did demonstrate a small evolving left MCA infarction without hemorrhage or mass effect. Patient was kept on telemetry monitoring with no episodes of atrial fibrillation. Additionally, an echocardiogram was completed which did not demonstrate any acute issues (Report below). The patients symptoms had completely resolved on day of discharge. He was continued on Aspirin, Crestor, and Xarelto with recommendations to follow-up with PCP and Neurology. Patient had been counseled extensively on smoking cessation and modifiable risk factors in prevention of stroke and heart attack. His daughter was present via telephone during discussion. Patient had stated that he had no plans of quitting smoking. During the patients hospitalization he did receive a CTA of the chest as he had at one point developed shortness of breath. His CT did demonstrated a subpleural left lower lobe nodule measuring 5x7 mm. Given his smoking history and current findings recommendations for patient to have repeat CT scan in 6 months to ensure stability of nodule. DISCHARGE MEDICATIONS: Please see below. ALLERGIES: Please see below. PHYSICAL EXAMINATION ON DISCHARGE: VITAL SIGNS: Please see below. GENERAL: Awake, alert, and oriented. Appears in no acute distress. Sitting up comfortably in bed HEENT: No palpable cervical, axillary, or supraclavicular lymphadenopathy NECK: No JVD. Olivo neck CARDIOVASCULAR EXAMINATION: Normal S1, S2. Regular rate and rhythm. No clicks rubs or murmurs RESPIRATORY EXAMINATION: Clear vesicular breath sounds bilaterally. Decreased breath sounds. No wheezes, rhonchi, or rales.Symmetric chest expansion ABDOMINAL EXAMINATION: Morbidly obese. Soft, nondistended. Nontender. Normoactive bowel sounds EXTREMITIES: No edema. Full and equal pulses in bilateral upper and lower extremities NEUROLOGICAL EXAMINATION: No focal neurological deficits. Speech is clear and articulate. CN II-XII grossly intact. Cerebellar testing within normal limits PSYCHIATRIC EXAMINATION: Mood and affect appropriate LABORATORY DATA: Please see below. ECHOCARDIOGRAM DATE OF STUDY: 10/31/2019 REFERRING PHYSICIAN: Dr. Andre Pena INDICATION: Acute stroke. HEIGHT: 191 cm WEIGHT: 140 kg 2-D MEASUREMENTS: Aortic root: 3.7 cm Left atrium: 4.1 cm Ventricular septum: 1.34 cm Posterior wall: 1.32 cm Left ventricle diastole: 5.35 cm Aortic annulus: 2.2 cm Inferior vena cava: 2.5 cm (probably more than 50% respiratory variation) DOPPLER MEASUREMENTS: No aortic regurgitation. No aortic stenosis. Aortic valve velocity: 120 cm/sec LVOT velocity: 89.5 cm/sec No mitral regurgitation. Mitral E velocity: 59.2 cm/sec Mitral A velocity: 68.1 cm/sec No tricuspid regurgitation. No pulmonic regurgitation. Pulmonary artery systolic pressure: 28 mmHg MITRAL ANNULAR TISSUE DOPPLER: E prime septal: 6.5 cm/sec E prime lateral: 9.0 cm/sec DESCRIPTION: The rhythm was sinus. This was a moderately technically difficult echocardiogram. This was a 2-D, M-mode, color flow Doppler and pulsed wave Doppler examination and included mitral annular tissue Doppler. CONCLUSIONS: 1. Mild concentric left ventricular hypertrophy. Normal regional LV wall motion and wall thickening. Normal LV systolic function. Left ventricular ejection fraction (LVEF) 60% by visual estimate. Grade 1 LV diastolic dysfunction (impaired relaxation filling pattern). 2. Otherwise, normal appearing echocardiogram-Doppler. 3. Moderately technically difficult echocardiogram-Doppler. DD: Luis Fernando Haque MD [facility] 10/31/19 1612 IMAGING: PROCEDURE INFORMATION: Exam: CT Head Without Contrast Exam date and time: 10/29/2019 11:53 PM Age: 48 years old Clinical indication: Altered mental status/memory loss; Confusion or disorientation; Additional info: Dysarthria TECHNIQUE: Imaging protocol: Computed tomography of the head without contrast. Radiation optimization: All CT scans at this facility use at least one of these dose optimization techniques: automated exposure control; mA and/or kV adjustment per patient size (includes targeted exams where dose is matched to clinical indication); or iterative reconstruction. COMPARISON: No relevant prior studies available. FINDINGS: Brain: No intracranial hemorrhage or extra-axial fluid collection. No evidence of mass effect or midline shift. Sanchez-white matter differentiation is intact. Ventricles: No ventriculomegaly. Bones/joints: No acute osseus lesion or fracture. Sinuses: Unremarkable as visualized. Mastoid air cells: Unremarkable. Soft tissues: Unremarkable. IMPRESSION: No acute intracranial pathology. Electronically signed by: Chet Callahan On 10/30/2019 00:15:58 AM PROCEDURE INFORMATION: Exam: US Duplex Bilateral Extracranial Arteries Exam date and time: 10/30/2019 4:44 AM Age: 48 years old Clinical indication: Altered mental status/memory loss; Additional info: CVA TECHNIQUE: Imaging protocol: Real-time Duplex ultrasound scan of the bilateral carotid and vertebral arteries combining sanchez scale, color Doppler and spectral waveform analysis. Bilateral exam. COMPARISON: CT Head without contrast 10/30/2019 12:00 AM FINDINGS: Right common carotid artery: The right common carotid artery proximally demonstrates normal Doppler waveforms and velocity of 95 cm/s, mid velocity of 70 cm/s and distal velocity of 53 cm/s. Right internal carotid artery: The right proximal internal carotid artery demonstrates normal waveforms and velocity of 44 cm/s and distal velocity is 36 cm/s. Right ICA/CCA ratio: The right ICA/CCA ratio is 0.47. Right external carotid artery: The right external carotid artery demonstrates normal Doppler waveforms and velocity of 60 cm/s. Right vertebral artery: The right vertebral artery demonstrates antegrade flow with velocity of 31 cm/s. Left common carotid artery: The left common carotid artery proximally demonstrates normal Doppler waveforms with velocity of 131 cm/s, mid velocity of 104 cm/s and distal velocity of 64 cm/s. Left internal carotid artery: The left proximal internal carotid artery demonstrates normal Doppler waveforms with velocity of 51 cm/s, mid velocity of 65 cm/s and distal velocity of 72 cm/s. Left ICA/CCA ratio: The left ICA/CCA ratio is 0.55. Left external carotid artery: The left external carotid artery demonstrates normal Doppler waveforms with velocity of 53 cm/s. Left vertebral artery: The left vertebral artery demonstrates antegrade flow with velocity of 35 cm/s. IMPRESSION: Negative carotid Doppler evaluation without evidence of hemodynamically significant stenosis. REFERENCES: SRU CRITERIA. The degree of internal carotid artery stenosis is based on criteria defined by the Society of Radiologists in Ultrasound (SRU). Normal is no stenosis. Mild is less than 50% stenosis. Moderate is 50-69% stenosis. Severe is greater than 69% stenosis to near occlusion. Near occlusion is a markedly narrowed lumen. Total occlusion is no detectable patent lumen. Electronically signed by: Suresh Boone On 10/30/2019 04:58:34 AM PROCEDURE INFORMATION: Exam: CT Angiography Chest With Contrast Exam date and time: 10/30/2019 2:32 AM Age: 48 years old Clinical indication: Dyspnea; Additional info: Dysp TECHNIQUE: Imaging protocol: Computed tomographic angiography of the chest with intravenous contrast. 3D rendering: MIP and/or 3D reconstructed images were created by the technologist. Radiation optimization: All CT scans at this facility use at least one of these dose optimization techniques: automated exposure control; mA and/or kV adjustment per patient size (includes targeted exams where dose is matched to clinical indication); or iterative reconstruction. Contrast material: ISO; Contrast volume: 75 ml; Contrast route: INTRAVENOUS (IV); COMPARISON: No relevant prior studies available. FINDINGS: Pulmonary arteries: Opacification of the aorta with unopacified pulmonary arteries with opacification of incoming venous supply consistent with interrupted injection. The main pulmonary artery measures 32 mm. Pulmonary embolism is not excluded. Aorta: The ascending thoracic aorta measures 33 mm. Lungs: Subpleural nodule in the posterior left lower lobe measuring 5 x 7 mm. Calcified granuloma in the left lower lobe. Pleural space: Unremarkable. No pneumothorax. No pleural effusion. Heart: Unremarkable. No cardiomegaly. No pericardial effusion. Lymph nodes: Unremarkable. No enlarged lymph nodes. Bones/joints: Unremarkable. No acute fracture. Soft tissues: Unremarkable. IMPRESSION: 1. Unopacified pulmonary arteries consistent with interrupted injection. Pulmonary embolism is not excluded. 2. Subpleural left lower lobe nodule measuring 5 x 7 mm. For patients at low risk (minimal or absent history of smoking and of other known risk factors), recommend CT at 6-12 months, then consider CT at 18-24 months. For patients at high risk (history of smoking or of other known risk factors), recommend CT at 6-12 months, then CT at 18-24 months. (Thong et al., Fleischner Society, 2017). 3. Evidence of old granulomatous disease. Electronically signed by: Suresh Boone On 10/30/2019 03:18:[address] brain: 10/30/2019. Indication: Stroke. Technique: Unenhanced axial CT images of the brain were obtained from skull base to vertex. Comparison: CT brain dated 10/30/2019. Findings: There is no acute intracranial hemorrhage or mass effect. Small area of hypoattenuation is present within the left frontal parietal region. There is no hydrocephalus. Impression: Small evolving the left MCA infarction without hemorrhage or mass effect. Electronically Signed by Igor Campbell DO 10/30/2019 05:06 P Intra and extracranial CTA: 10/31/2019. Indication: Stroke. Technique: High resolution axial CT images of the intra and extracranial circulations were performed following the IV administration of iodinated contrast with coronal, sagittal and 3-D reconstructions provided. Comparison: None. Findings: There is no intracranial aneurysm, high-grade stenosis, occlusion or AVM. There is no hemodynamically significant extracranial ICA stenosis by NASCET criteria or additional significant abnormalities of the extracranial carotid or vertebral arteries. Impression: No high-grade stenosis or vessel occlusion. Electronically Signed by Igor Campbell DO 10/31/2019 11:22 A Intra and extracranial CTA: 10/31/2019. Indication: Stroke. Technique: High resolution axial CT images of the intra and extracranial circulations were performed following the IV administration of iodinated contrast with coronal, sagittal and 3-D reconstructions provided. Comparison: None. Findings: There is no intracranial aneurysm, high-grade stenosis, occlusion or AVM. There is no hemodynamically significant extracranial ICA stenosis by NASCET criteria or additional significant abnormalities of the extracranial carotid or vertebral arteries. Impression: No high-grade stenosis or vessel occlusion. Electronically Signed by Igor Campbell DO 10/31/2019 11:22 A PROGNOSIS: FAIR ACTIVITY: [As tolerated]. DIET: Consistent Carbohydrate DISCHARGE PLAN: Patient is to be discharged home with follow-up with PCP in 7-10 days. He is to follow-up with Neurology in 3-4 weeks. Patient is to continue aspirin, Xarelto, and Crestor. He has been counseled on smoking cessation and the increased risk of heart attack and stroke. Patient acknowledged understanding of adverse effects of smoking and declined smoking cessation. Recommendations for follow-up Low resolution CT scan of the chest for reevaluation fo subpleural left sided lung nodule in 6 months. DISPOSITION: . DISCHARGE INSTRUCTIONS: 1. Continue ASA, Crestor, and Xarelto 2. Follow-up with PCP and Neurology 3. Recommend repeat CT scan in 6 months for left lung subpleural nodule 4. Recommend Smoking cessation DISCHARGE CONDITION: [Stable]. TIME SPENT ON DISCHARGE: 40 minutes. I have personally evaluated and examined the patient. Discussed with resident/student regarding plan of care and agree with the above assessment and plan. Vital Signs/I&Os Vital Signs Date Time Temp Pulse Resp B/P (MAP) Pulse Ox O2 Delivery O2 Flow Rate FiO2 11/01/19 08:54 91 11/01/19 08:53 140/89 11/01/19 06:00 98.5 21 95 Room Air 10/31/19 23:00 12.0 30 I&O- Last 24 Hours up to 6 AM 11/01/19 05:59 Intake Total 3510 ml Output Total 0 ml Balance 3510 ml Laboratory Data Labs 24H Laboratory Tests 2 10/31/19 16:35: Bedside Glucose (Misc Panel) 194H 10/31/19 20:11: Bedside Glucose (Misc Panel) 217H 11/01/19 06:48: Bedside Glucose (Misc Panel) 152H FSBS Laboratory Tests Test 10/31/19 16:35 10/31/19 20:11 11/01/19 06:48 Range/Units Bedside Glucose (Misc Panel) 194 217 152 70-105 MG/DL Microbiology Microbiology 10/30/19 Blood Culture - Preliminary, Resulted No Growth after 48 hours. All Specime... 10/30/19 Blood Culture - Preliminary, Resulted No Growth after 48 hours. All Specime... Discharge Medications Scheduled Amlodipine Besylate (Amlodipine Besylate) 10 Mg Tablet, 10 MG PO DAILY, (Reported) Aspirin (Ecotrin) 81 Mg Tablet.dr, 81 MG PO DAILY for CVA Cholecalciferol (Vitamin D3) (Vitamin D3) 1,000 Unit Tablet, 1,000 UNITS PO DAILY, (Reported) Duloxetine Hcl (Duloxetine HCl) 30 Mg Capsule.dr, 30 MG PO QHS, (Reported) Ertugliflozin Pidolate (Steglatro) 15 Mg Tablet, 15 MG PO DAILY, (Reported) Gabapentin (Gabapentin) 600 Mg Tablet, 600 MG PO QHS, (Reported) Irbesartan (Irbesartan) 300 Mg Tablet, 300 MG PO DAILY, (Reported) Metformin HCl (Metformin HCl ER) 500 Mg Tab.er.24h, 1,000 MG PO BID, (Reported) Metoprolol Succinate (Metoprolol Succinate) 100 Mg Tab.er.24h, 100 MG PO DAILY, (Reported) [place]-3/Dha/Epa/Fish Oil (Fish Oil 1,000 mg Softgel) 1 Each Capsule, 1 CAP PO BID, (Reported) Omeprazole (Omeprazole) 40 Mg Capsule.dr, 40 MG PO DAILY, (Reported) Rivaroxaban (Xarelto) 10 Mg Tablet, 10 MG PO QHS, (Reported) Rosuvastatin Calcium (Rosuvastatin Calcium) 40 Mg Tablet, 40 MG PO DAILY, (Reported) Allergies Coded Allergies: No Known Allergies (Unverified , 10/29/19) PHYLLIS WRIGHT DO Nov 01, 2019 12:03 MIGUEL ÁNGEL CRUZ MD Nov 01, 2019 16:07
== END 2019-11-01 12:00 | disposition home or self-care (01) | DRG 45 ==
LOC: M ED 23:01 → M ED INP 23:02 → ENRESERV 10-30 03:19 → M MSPAV 10-30 04:50 → OBSVTOIN 11-01 08:21
PROVIDERS: ADMIT Internal Medicine; ATTEND Student in an Organized Health Care Education/Training Program
DX: I63.9 Cerebral infarction, unspecified (principal); I10 Essential (primary) hypertension; E66.01 Morbid (severe) obesity due to excess calories; E11.9 Type 2 diabetes mellitus without complications; F17.200 Nicotine dependence, unspecified, uncomplicated; D72.829 Elevated white blood cell count, unspecified; Z79.01 Long term (current) use of anticoagulants; Z86.711 Personal history of pulmonary embolism; Z86.718 Personal history of other venous thrombosis and embolism; G47.33 Obstructive sleep apnea (adult) (pediatric); Z91.19 Patient's noncompliance with other medical treatment and regimen; R91.1 Solitary pulmonary nodule; Z79.82 Long term (current) use of aspirin; Z79.899 Other long term (current) drug therapy

== ENCOUNTER 2020-10-13 16:32 | Observation (INO) | payer OTHER ==
[~2020-10-13] VITALS: Ht 188 cm; Wt 134.6 kg
[~2020-10-13 16:32] MED LIST: AMLO1TAB25 PO; D31000TA2 PO; DULO1CAP5 PO; ECOT81TA5 PO; GABA600T4 PO; IRBE300T7 PO; METF-838 PO; METO1TAB33 PO; OMEG10002 PO; OMEP-221 PO; ROSU40TA4 PO; STEG15TA PO; VENL37.598 PO; XARE10TA PO
[2020-10-13 18:25] VITALS: BP 141/85
[2020-10-13 18:57] LABS: BASO # 0.1 10^3/uL (0.0-0.2); BASO % 0.5 % (0.0-1.0); EOS # 0.2 10^3/uL (0.0-0.5); EOS % 1.8 % (0.0-3.0); HEMATOCRIT 51.2 % (42.0-52.0); HEMOGLOBIN 17.2 g/dl (13.5-17.5); LYMPH # 3.6 10^3/uL (1.5-5.0); LYMPH % 34.1 % (24.0-44.0); MEAN CORPUSCULAR HEMOGLOBIN 28.8 pg (27.0-33.0); MEAN CORPUSCULAR HGB CONC 33.6 g/dl (32.0-36.5); MEAN CORPUSCULAR VOLUME 85.8 fl (80.0-96.0); MONO # 0.8 10^3/uL (0.0-0.8); MONO % 7.2 % (2.0-8.0); NEUTROPHILS # 5.9 10^3/uL (1.5-8.5); PLATELET COUNT, AUTOMATED 224 10^3/uL (150-450); RED BLOOD COUNT 5.97 10^6/uL (4.30-6.10); WHITE BLOOD COUNT 10.6 10^3/uL (4.0-10.0)
--- NOTE | 2020-10-13 19:16 | HPEPDOC ---
[facility] Medical History & Physical Date of Admission Oct 13, 2020 Date of Service: Oct 13, 2020 History and Physical addendum to History and Physical Exam: a/p 49 y/o M w pmh cva, pe, dvt, saddle embolus, htn, dm, dyslipidemia, ivc filter , chronic back pain compliant with his ASA and Xarelto at home presents to [facility] w c/o 1 wk h/o diplopia, blurred vision, and worsening ataxia with leaning to the left. CT head was negative. MRI brain last week was negative. [place] [facility] transferred to [facility] for further workup and neurology services. Blurred vision/diplopia/ataxia r/o vertebrobasilar cva -continued on ASA and xarelto, neurochecks q4hrs and telemetry. -discussed with both neurology Dr. Taveras and Feed Mill Operator leasing consultant Dr. Rafael Christianson. Both of whom will see the patient. -check MRI brain/Mra brain and carotids/echo. -discussed with Dr. Herman, assistant chief train dispatcher leasing consultant , who recommends outpt fu at the [facility] for hypercoag workup ,but antiplt/anticoag changes should be deferred to Neurology. Check antiphospholipid syndrome, but if positive, pt's are better treated with warfarin than direct acting anticoagulants. Vital Signs Vital Signs Date Time Temp Pulse Resp B/P (MAP) Pulse Ox O2 Delivery O2 Flow Rate FiO2 10/13/20 18:25 97.2 70 18 141/85 (103) 93 Room Air Laboratory Data Labs 24H Laboratory Tests 2 10/13/20 18:31: Immature Granulocyte % (Auto) 0.4, Neutrophils (%) (Auto) 56.0, Lymphocytes (%) (Auto) 34.1, Monocytes (%) (Auto) 7.2, Eosinophils (%) (Auto) 1.8, Basophils (%) (Auto) 0.5, Neutrophils # (Auto) 5.9, Lymphocytes # (Auto) 3.6, Monocytes # (Auto) 0.8, Eosinophils # (Auto) 0.2, Basophils # (Auto) 0.1, Nucleated Red Blood Cells % (auto) 0.0 CBC/BMP Laboratory Tests 10/13/20 18:31 Home Medications Scheduled Amlodipine Besylate (Amlodipine Besylate) 10 Mg Tablet, 10 MG PO DAILY Aspirin (Ecotrin) 81 Mg Tablet.dr, 81 MG PO DAILY for CVA Cholecalciferol (Vitamin D3) (Vitamin D3) 1,000 Unit Tablet, 1,000 UNITS PO DAILY Duloxetine Hcl (Duloxetine HCl) 30 Mg Capsule.dr, 30 MG PO QHS Ertugliflozin Pidolate (Steglatro) 15 Mg Tablet, 15 MG PO DAILY Gabapentin (Gabapentin) 600 Mg Tablet, 600 MG PO QHS Irbesartan (Irbesartan) 300 Mg Tablet, 300 MG PO DAILY Metformin HCl (Metformin HCl ER) 500 Mg Tab.er.24h, 1,000 MG PO BID Metoprolol Succinate (Metoprolol Succinate) 100 Mg Tab.er.24h, 100 MG PO DAILY [place]-3/Dha/Epa/Fish Oil (Fish Oil 1,000 mg Softgel) 1 Each Capsule, 1 CAP PO BID Omeprazole (Omeprazole) 40 Mg Capsule.dr, 40 MG PO DAILY Rivaroxaban (Xarelto) 10 Mg Tablet, 10 MG PO QHS Rosuvastatin Calcium (Rosuvastatin Calcium) 40 Mg Tablet, 40 MG PO DAILY Allergies Coded Allergies: No Known Allergies (Unverified , 10/29/19) A-FIB/CHADSVASC A-FIB History Current/History of A-Fib/PAF?: No Current PO Anticoag Therapy: No Age/Risk Factor Scoring CHADSVASC: CHADSVASC Response (Comments) Value Age Risk Factor Age < 65 years old 0 Gender Risk Factor Male 0 Hx of CHF No 0 Hx of HTN Yes 1 Hx of Stroke/TIA/or VTE Yes 2 Hx of Diabetes Yes 1 Hx of Vascular Disease Yes 1 Total 5 Treatment Treatment ordered: Rivaroxaban NEGRITO MCBRIDE MD Oct 13, 2020 19:16
[2020-10-13 19:21] LABS: ERYTHROCYTE SEDIMENTATION RATE 1 mm/hr (0-20)
[2020-10-13 19:29] LABS: ALBUMIN 3.9 GM/DL (3.2-5.2); ALT/SGPT 30 U/L (12-78); BILIRUBIN,TOTAL 0.5 MG/DL (0.2-1.0); BLOOD UREA NITROGEN 13 MG/DL (7-18); CALCIUM LEVEL 9.2 MG/DL (8.5-10.1); CARBON DIOXIDE LEVEL 26 MEQ/L (21-32); CHLORIDE LEVEL 107 MEQ/L (98-107); GLOMERULAR FILTRATION RATE > 60.0 (>56); GLUCOSE, FASTING 139 MG/DL (70-100); MAGNESIUM LEVEL 1.9 MG/DL (1.8-2.4); RHEUMATOID FACTOR QUANT < 10.0 IU/ML (<15.0); SODIUM LEVEL 139 MEQ/L (136-145); TOTAL PROTEIN 6.9 GM/DL (6.4-8.2)
[2020-10-13 19:41] LABS: HEMOGLOBIN A1c 6.6 %
[2020-10-13] MEDS ORDERED: GABA-282 PO (19:46)
[2020-10-13] MEDS ORDERED: VITA50005 PO (19:46)
[2020-10-13] MEDS ORDERED: TRUL0.5I SQ (19:46)
[2020-10-13] MEDS ORDERED: DULO1CAP6 PO (19:46)
[2020-10-13] MEDS ORDERED: XARE20TA PO (19:46)
[2020-10-13] MEDS: GABAPENTIN 300 MG CAP PO SCH (20:50)
[2020-10-13] MEDS ORDERED: OMEGA-3 1000MG CAPSULE PO SCH (21:00)
[2020-10-13 22:00] VITALS: BP 130/78
[2020-10-13] MEDS: RIVAROXABAN 20 MG TAB (XARELTO) PO SCH (22:34)
[2020-10-14 06:00] VITALS: BP 128/76
[2020-10-14 06:40] LABS: BASO # 0.1 10^3/uL (0.0-0.2); BASO % 0.6 % (0.0-1.0); EOS # 0.2 10^3/uL (0.0-0.5); EOS % 1.8 % (0.0-3.0); HEMATOCRIT 50.5 % (42.0-52.0); HEMOGLOBIN 16.6 g/dl (13.5-17.5); LYMPH # 3.9 10^3/uL (1.5-5.0); LYMPH % 30.8 % (24.0-44.0); MEAN CORPUSCULAR HEMOGLOBIN 28.5 pg (27.0-33.0); MEAN CORPUSCULAR HGB CONC 32.9 g/dl (32.0-36.5); MEAN CORPUSCULAR VOLUME 86.6 fl (80.0-96.0); MONO # 0.8 10^3/uL (0.0-0.8); MONO % 6.1 % (2.0-8.0); NEUTROPHILS # 7.6 10^3/uL (1.5-8.5); NEUTROPHILS % 60.2 % (36.0-66.0); PLATELET COUNT, AUTOMATED 208 10^3/uL (150-450); RED BLOOD COUNT 5.83 10^6/uL (4.30-6.10); WHITE BLOOD COUNT 12.5 10^3/uL (4.0-10.0)
[2020-10-14 07:14] LABS: BLOOD UREA NITROGEN 12 MG/DL (7-18); CALCIUM LEVEL 8.9 MG/DL (8.5-10.1); CARBON DIOXIDE LEVEL 26 MEQ/L (21-32); CHLORIDE LEVEL 105 MEQ/L (98-107); CHOLESTEROL LEVEL 99 MG/DL (<200); CHOLESTEROL RISK RATIO 3.193 (<5); CREATININE FOR GFR 0.82 MG/DL (0.70-1.30); GLOMERULAR FILTRATION RATE > 60.0 (>56); GLUCOSE, FASTING 137 MG/DL (70-100); HDL CHOLESTEROL 31 MG/DL (>40); LDL CHOLESTEROL 11 MG/DL (<100); MAGNESIUM LEVEL 2.1 MG/DL (1.8-2.4); NON-HDL-C 68 MG/DL; POTASSIUM SERUM 4.2 MEQ/L (3.5-5.1); SODIUM LEVEL 138 MEQ/L (136-145); TRIGLYCERIDES LEVEL 286 MG/DL (<150)
[2020-10-14] MEDS ORDERED: ISOVUE-370 76% 100ML VIAL As Ordered ONE (08:28)
[2020-10-14] MEDS ORDERED: VITAMIN D 1,000 INTERNATIONAL UNITS TABLET PO SCH (09:00)
--- NOTE | 2020-10-14 09:15 | HPE ---
HISTORY AND PHYSICAL DATE OF ADMISSION: 10/13/2020 CHIEF COMPLAINT: Diplopia, left leg weakness, leaning to the left side when walks. HISTORY OF PRESENT ILLNESS: This is a 49-year-old male with history of CVA on aspirin and Xarelto, DVT of bilateral lower extremities, saddle embolus, pulmonary embolism 5-10 years ago, diabetes, hypertension, hyperlipidemia, previous smoker, three packs per days, now one pack a day and quit recently in the past few years, presented to [facility] with complaints of blurred vision that started last week. The patient was sitting down and complained of blurred vision. He also has chronic back pain and had an MRI done last week. When the MRI was done, the patient was leaning to the left side. An nutrition technician told him to go to the emergency room where the CT of the head was negative. The MRI of the brain was also negative. This continued on and today he was unable to walk and was leaning mostly on his left side, prompting him to come to the emergency room at [facility] where the CT of the head was also negative. The patient says that the double vision is getting worse, usually better when he closes one eye, one at a time. He says that when he is walking, bilateral upper extremities are okay but the left leg feels heavy and he usually leans on the left side, hard to walk, usually leaning and grabbing onto things. He otherwise denies any expressive aphasia, dysphagia, odynophagia. He denies any upper or lower extremity weakness. He felt that there was a little bit of tingling on the left side of his face for the past few hours. He has had no recent fall. In the emergency room at [facility], he felt unsteady when he walked and the double vision was getting worse. He was then transferred to [facility] for a consultation with neurology and to obtain an MRI of the brain. The patient otherwise denies any other symptoms, denies fever, chills, neck rigidity. He denies nausea, vomiting, diarrhea, abdominal pain, constipation, dysuria, urgency, frequency, hypo or hyperglycemia, polyphagia, polydipsia, weight changes, changes in appetite, sore throat. Hospitalist was asked to admit the patient for further workup. PAST MEDICAL HISTORY: 1. CVA. 2. DVT. 3. PE. 4. Saddle embolus. 5. Depression. 6. Diabetes. 7. Dry eye syndrome. 8. Reflux. 9. GI bleed. 10. Hyperlipidemia. 11. Hypertension. 12. Obstructive sleep apnea. 13. Rectal polyp. 14. Anxiety. PAST SURGICAL HISTORY: 1. Circumcision. 2. Colonoscopy. 3. IVC filter. 4. Right knee surgery. 5. Shoulder surgery. 6. Chronic back pain, no prior surgery. SOCIAL HISTORY: Previously smoked three packs a day down to one pack a day and quit. No alcohol use. No recreational drug use. The patient is self-employed as a health care technician, lives at home with his significant other. HOME MEDICATIONS: 1. Albuterol two puffs every 4 hours as needed. 2. Norvasc 10 mg daily. 3. Aspirin 81 daily. 4. Dulaglutide 1.5 mg per 0.5 mL once a week. 5. Duloxetine 60 mg a day. 6. Ergocalciferol 1.25 mg once a week. 7. Ertugliflozin-sitagliptin 15-100 mg one tablet daily. 8. Gabapentin 600 mg every p.m. 9. Irbesartan 300 mg daily. 10. Metformin 1 gm b.i.d. 11. Metoprolol 100 daily. 12. Omeprazole 40 daily. 13. Rivaroxaban 20 mg daily. 14. Rosuvastatin 40 mg daily. 15. Vitamin D 125 mcg daily. FAMILY HISTORY: Father with CAD. REVIEW OF SYSTEMS: 10-point system negative aside from positive findings in HPI. PHYSICAL EXAMINATION: VITAL SIGNS: Temperature 97.2, pulse 70, sinus rhythm, respiratory rate 18, blood pressure 141/85, 95% on room air. GENERAL: The patient is awake, alert and oriented to person, place and time, answering questions appropriately. No facial weakness. Tongue is not deviated. Uvula is midline. Pupils are equally round and reactive to light bilaterally No ptosis of bilateral upper eyelids, no disconjugate gaze, no nystagmus. The patient's right eye is unable to move medially. NECK: No JVD, no thyromegaly, no carotid bruit. HEART: S1, S2, sinus rhythm. No murmurs, rubs or gallops. Regular rhythm. LUNGS: Clear to auscultation. No wheezing, rales or rhonchi. ABDOMEN: Obese, soft, nontender, nondistended. Positive bowel sounds, soft, no rebound guarding, no abdominal bruit. EXTREMITIES: No cyanosis or clubbing. NEUROLOGIC: Awake, alert and oriented x3. The patient has no expressive aphasia. No facial drooping. Face is symmetric. Tongue is midline. Speech is fluent. Extraocular muscles: Right eye is unable to move medially. No lid lag bilaterally. No nystagmus. No dysmetria on egxvvg-eh-[id number] testing. No pronator drift. Reflexes are normal. No sensory deficit. Motor function 5/5, bilateral upper extremities. Right lower extremity is 5/5 motor function. Left lower extremity is 4/5. Gait is abnormal, leaning to the left side. LABORATORY DATA: CBC, metabolic panel, liver function tests, TSH, A1C are all pending. Rheumatoid factor, CALI screen, antiphospholipid syndrome, factor V Leiden mutation, prothrombin gene mutation all pending. Lab data from [place]: White count 10.8, hemoglobin 17, hematocrit 51, MCV 86, MCH 29, platelet count 227. Sodium 138, potassium 4.1, chloride 104, bicarb 22. BUN is 13, creatinine 0.8, glucose of 191, total protein 7, albumin 4.7, globulin 2.3, calcium 9.9, T bili less than 0.7, alk phos 85, AST 15, ALT 19. EKG: Sinus rhythm, ventricular rate of 76, MO interval 174, QRS 110, QT 394, QTC 443. No acute ST-T wave changes. ASSESSMENT AND PLAN: This is a 49-year-old male with history of DVT, PE, saddle embolus, CVA in the past, compliant with aspirin and Xarelto, presents ot the emergency room with blurred vision, diplopia and weakness on the left leg leaning to the left with an ataxic gait, seen at [place] emergency room, transferred to [facility] for neurological services and MRI of the brain. He previously had an MRI of the brain a week ago which was negative. IMPRESSION: 1. Diplopia, rule out CVA versus cranial nerve palsy. The patient is admitted a [facility] floor under telemetry, neuro checks q.4 hourly, MRI/MRA of the brain, MRA of the carotids, echocardiogram. Neurologist has been consulted. Continue on home medications, Xarelto and aspirin for now. [employer]ridge Crimper, Dr. Christianson has also been consulted and agrees with imaging for now. No changes in the medications and we will examine him in the morning. 2. Hypertension. Currently permitting permissive hypertension if positive for CVA. If not, the patient might be resumed on his previous medications. 3. History of DVT, PE, status post IVC filter and CVA. Discussed the case with Dr. Kim Herman, cd storage and materials make up helper performance test consultant this evening. She suggests checking for antiphospholipid syndrome, and if positive, pt is best treated with warfarin and not direct oral anticoagulants. MTDD
--- NOTE | 2020-10-14 09:18 | REPVR ---
PROCEDURE INFORMATION: Exam: CT Head Without Contrast Exam date and time: 10/14/2020 9:01 AM Age: 49 years old Clinical indication: Other: Diplopia blurred vision ataxia R/O CVA TECHNIQUE: Imaging protocol: Computed tomography of the head without contrast. Radiation optimization: All CT scans at this facility use at least one of these dose optimization techniques: automated exposure control; mA and/or kV adjustment per patient size (includes targeted exams where dose is matched to clinical indication); or iterative reconstruction. Other technique: STROKE PROTOCOL was implemented. COMPARISON: CT Head without contrast 10/30/2019 3:59 PM FINDINGS: Brain: There is no acute intracranial hemorrhage. No extra-axial fluid collection. No evidence of acute infarct. Sanchez white differentiation is intact. There is no evidence of mass. There is no mass effect or midline shift. Cerebral ventricles: No ventriculomegaly. Paranasal sinuses: Small left maxillary sinus retention cyst or polyp. Mastoid air cells: No significant mastoid effusion. Bones/joints: No acute fracture. Soft tissues: Unremarkable as visualized. IMPRESSION: No evidence of acute intracranial abnormality. No acute hemorrhage. No evidence of acute infarct or mass. ASSESSMENT: ASPECTS (Rachelle Stroke Program Early CT Score) is 10. Electronically signed by: Jannet Goldberg On 10/14/2020 09:18:33 AM
--- NOTE | 2020-10-14 09:46 | REPVR ---
PROCEDURE INFORMATION: Exam: CT Angiography Neck With Contrast Exam date and time: 10/14/2020 9:01 AM Age: 49 years old Clinical indication: Other: Diplopia ataxia R/O CVA TECHNIQUE: Imaging protocol: Computed tomography angiography of the neck with contrast. 3D rendering (Not supervised by radiologist): MIP and/or 3D reconstructed images were created by the technologist. Radiation optimization: All CT scans at this facility use at least one of these dose optimization techniques: automated exposure control; mA and/or kV adjustment per patient size (includes targeted exams where dose is matched to clinical indication); or iterative reconstruction. Contrast material: ISOVUE 370; Contrast volume: 100 ml; Contrast route: INTRAVENOUS (IV); COMPARISON: CT ANGIO NECK 10/31/2019 8:53 AM FINDINGS: Right common carotid artery: No stenosis. No dissection or occlusion. Right internal carotid artery: No stenosis of the extracranial segment. No dissection or occlusion. Right external carotid artery: No occlusion or stenosis of the origin. Left common carotid artery: No stenosis. No dissection or occlusion. Left internal carotid artery: No stenosis of the extracranial segment. No dissection or occlusion. Left external carotid artery: No occlusion or stenosis of the origin. Right vertebral artery: No stenosis. No dissection or occlusion. Left vertebral artery: No stenosis. No dissection or occlusion. Aorta: Visualized aorta is normal caliber without aneurysm or dissection. Other arteries: Visualized bilateral subclavian arteries are widely patent. Soft tissues: Normal. No significant soft tissue swelling. Bones/joints: No acute fracture. Multilevel disc findings: There are multilevel degenerative changes with neural foraminal narrowing. IMPRESSION: No extracranial vascular stenosis or occlusion. No evidence dissection. REFERENCES: NASCET CRITERIA. The degree of internal carotid artery stenosis is based on NASCET criteria. Normal is no stenosis. Mild is less than 50% stenosis. Moderate is 50-69% stenosis. Severe is 70% to 99% stenosis. Total occlusion is no detectable patent lumen. Electronically signed by: Jannet Goldberg On 10/14/2020 09:45:49 AM
--- NOTE | 2020-10-14 09:46 | REPVR ---
PROCEDURE INFORMATION: Exam: CT Angiography Head With Contrast, Arteriography Exam date and time: 10/14/2020 9:01 AM Age: 49 years old Clinical indication: Other: Diplopia ataxia R/O CVA TECHNIQUE: Imaging protocol: Computed tomography angiography of the head with contrast. Exam focused on the arteries. 3D rendering (Not supervised by radiologist): MIP and/or 3D reconstructed images were created by the technologist. Radiation optimization: All CT scans at this facility use at least one of these dose optimization techniques: automated exposure control; mA and/or kV adjustment per patient size (includes targeted exams where dose is matched to clinical indication); or iterative reconstruction. Contrast material: ISOVUE 370; Contrast volume: 100 ml; Contrast route: INTRAVENOUS (IV); COMPARISON: CT ANGIO HEAD 10/31/2019 8:53 AM FINDINGS: ANTERIOR CIRCULATION: Right internal carotid artery: Unremarkable. Intracranial segment is patent with no significant stenosis. No aneurysm. Right middle cerebral artery: Unremarkable. No occlusion or significant stenosis. No aneurysm. Right anterior cerebral artery: Unremarkable. No occlusion or significant stenosis. No aneurysm. Left internal carotid artery: Unremarkable. Intracranial segment is patent with no significant stenosis. No aneurysm. Left middle cerebral artery: Unremarkable. No occlusion or significant stenosis. No aneurysm. Left anterior cerebral artery: Unremarkable. No occlusion or significant stenosis. No aneurysm. POSTERIOR CIRCULATION: Right vertebral artery: Unremarkable. No occlusion or significant stenosis. No aneurysm. Left vertebral artery: Unremarkable. No occlusion or significant stenosis. No aneurysm. Basilar artery: Unremarkable. No occlusion or significant stenosis. No aneurysm. Right posterior cerebral artery: Unremarkable. No occlusion or significant stenosis. No aneurysm. Left posterior cerebral artery: Unremarkable. No occlusion or significant stenosis. No aneurysm. Brain: No definite mass, mass effect, or midline shift. Cerebral ventricles: No ventriculomegaly. Bones/joints: Unremarkable. No acute fracture. Soft tissues: Unremarkable. IMPRESSION: No intracranial vascular stenosis or occlusion. Electronically signed by: Jannet Goldberg On 10/14/2020 09:46:06 AM
[2020-10-14] MEDS: OMEPRAZOLE 20 MG CAP PO SCH (09:48)
[2020-10-14] MEDS: IRBESARTAN 150MG TAB PO SCH (09:50)
[2020-10-14] MEDS: GABAPENTIN 300 MG CAP PO SCH ×2 (09:51→21:24)
[2020-10-14] MEDS: METOPROLOL SUCC (TopROL XL) 100MG *XL* TAB PO SCH (09:51)
[2020-10-14] MEDS: DULoxetine 30 MG CAP (CYMBALTA) PO SCH (09:51)
[2020-10-14] MEDS: ROSUVASTATIN 10 MG TAB (CRESTOR) PO SCH (09:51)
[2020-10-14 13:08] LABS: DRVV SCREEN 53.7 SEC
[2020-10-14 13:14] LABS: PTT LUPUS TYPE ANTICOAG SCREEN 1.3 (0-1.2)
[2020-10-14 13:23] LABS: DRVV CONFIRM 36.4 SEC
[2020-10-14 13:24] LABS: NORMALIZED RATIO 1.3 (0.00-1.20)
[2020-10-14 14:00] VITALS: BP 129/79
[2020-10-14] MEDS ORDERED: LIDOCAINE VISCOUS 2% SOLN 15ML UDC SS PRN (14:00)
[2020-10-14] MEDS ORDERED: GLUCAGON INJ 1MG VIAL SC PRN (15:10)
[2020-10-14] MEDS ORDERED: DEXTROSE 50% 50 ML SYRINGE IV PRN (15:10)
[2020-10-14] MEDS ORDERED: GLUCOSE 4GM CHEW TABLET PO PRN (15:10)
--- NOTE | 2020-10-14 17:45 | IPN ---
PROGRESS NOTE DATE: 10/14/2020 SUBJECTIVE: The patient continues to have persistent diplopia and blurred vision, which is better when he uses an eye patch. He continues to lean over to the left side when he tries to ambulate from bed to the bathroom. He continues to have some numbness in the left-sided upper and lower lip. He complains of pain in his tongue, which he bit yesterday. No signs of aspiration. Tolerating a thin liquid diet. OBJECTIVE: VITAL SIGNS: Temperature 97.4, pulse 76, respiratory rate 18, blood pressure 129/79, 94% on room air. GENERAL: The patient is awake, alert, and oriented to person, place, and time. HEENT: No ptosis bilaterally. The patient has no disconjugate gaze and no nystagmus. Right eye is unable to move medially with adduction. NECK: No JVD or thyromegaly. No carotid bruit. HEART: S1, S2. Sinus rhythm. No murmur, rub or gallop. ABDOMEN: Soft, nontender, and nondistended with positive bowel sounds x4 quadrants. No rebound or guarding. No abdominal bruit. LUNGS: Clear to auscultation with no wheezing, rales, or rhonchi. EXTREMITIES: No cyanosis, clubbing, or pitting edema. NEUROLOGIC: Awake, alert, and oriented x3. No expressive aphasia. No facial drooping. Face is symmetric. Tongue is midline with slight swelling on the left tongue. Speech is fluent and not garbled. Right eye has difficulty with medial adduction DIAGNOSTIC STUDIES: CBC, metabolic panel, lipid profile, and imaging studies including CTA of the neck and CTA of the head are all negative. ASSESSMENT AND PLAN: This is a 49-year-old male with history of cerebrovascular accident (CVA), deep vein thrombosis (DVT), pulmonary embolus (PE), saddle embolus, depression, diabetes, hypertension, hyperlipidemia, obstructive sleep apnea, dry eyes, reflux, gastrointestinal (GI) bleed, anxiety, on chronic Xarelto and aspirin compliant presented with blurred vision and diplopia. Unable to obtain MRI or MRA of the brain due to inferior vena cava (IVC) filter. CTA of the head and neck, CT of the head without contrast are all negative. Current issues: 1. 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 Unable to fully assess with gold standard MRI of the brain for vertebral basilar CVA due to IVC filter for PE in the past and DVT. Currently still on aspirin and Xarelto and compliant. The patient is on neuro checks q. [address] Taveras and Dr. Rafael Christianson reference test clerk have been consulted and have yet to see the patient. 2. History of DVT, PE, and saddle embolus status post IVC filter currently compliant with aspirin and Xarelto. MRI of the brain could not be obtained to rule out CVA due to IVC filter in the past. 3. Hypertension. The patient was allowed to have permissive hypertension over the past 24 hours; however, we are not seeing a confirmed CVA and his blood pressure medications have been resumed of Norvasc, metoprolol, and Avapro with good control with 129 systolic at the bedside. 4. Dyslipidemia on chronic rosuvastatin. 5. Type 2 diabetes. He can resume his home medications as an outpatient. Currently on sliding scale insulin. Fingersticks q. a.c. and h.s. Speech evaluation in order to make sure no signs of aspiration. DISPOSITION: If no further recommendations and cleared by both neurology, ophthalmology, physical therapy and occupational therapy, the patient may be discharged home on the same anticoagulants. Per Dr. Herman, jig operator, the patient might be referred to the [facility] for evaluation of hypercoagulable state in light of recurrent PE, DVT, and recurrent CVA despite being on Xarelto and aspirin. [facility]
[2020-10-14] MEDS: HumaLOG INSULIN (NovoLOG) PER UNIT SC SCH (17:49)
[2020-10-14] MEDS: RIVAROXABAN 20 MG TAB (XARELTO) PO SCH (17:49)
[2020-10-14] MEDS: ASPIRIN 81MG ENTERIC TABLET PO SCH (17:57)
[2020-10-14] MEDS ORDERED: HumaLOG INSULIN (NovoLOG) PER UNIT SC SCH (21:00)
[2020-10-14 22:00] VITALS: BP 142/92
[2020-10-15 06:00] VITALS: BP 141/83
[2020-10-15 06:34] LABS: BASO # 0.1 10^3/uL (0.0-0.2); BASO % 0.5 % (0.0-1.0); EOS # 0.2 10^3/uL (0.0-0.5); EOS % 1.6 % (0.0-3.0); HEMATOCRIT 51.1 % (42.0-52.0); HEMOGLOBIN 16.6 g/dl (13.5-17.5); LYMPH % 27.4 % (24.0-44.0); MEAN CORPUSCULAR HGB CONC 32.5 g/dl (32.0-36.5); MEAN CORPUSCULAR VOLUME 86.2 fl (80.0-96.0); MONO # 0.7 10^3/uL (0.0-0.8); MONO % 6.1 % (2.0-8.0); NEUTROPHILS # 7.1 10^3/uL (1.5-8.5); NEUTROPHILS % 63.9 % (36.0-66.0); PLATELET COUNT, AUTOMATED 212 10^3/uL (150-450); RED BLOOD COUNT 5.93 10^6/uL (4.30-6.10); WHITE BLOOD COUNT 11.1 10^3/uL (4.0-10.0)
[2020-10-15 07:04] LABS: BLOOD UREA NITROGEN 14 MG/DL (7-18); CARBON DIOXIDE LEVEL 26 MEQ/L (21-32); CHLORIDE LEVEL 106 MEQ/L (98-107); CREATININE FOR GFR 0.77 MG/DL (0.70-1.30); GLOMERULAR FILTRATION RATE > 60.0 (>56); GLUCOSE, FASTING 151 MG/DL (70-100); MAGNESIUM LEVEL 2.1 MG/DL (1.8-2.4); POTASSIUM SERUM 4.3 MEQ/L (3.5-5.1); SODIUM LEVEL 140 MEQ/L (136-145)
--- NOTE | 2020-10-15 07:44 | CR ---
CONSULTATION DATE: 10/14/2020 REFERRING PHYSICIAN: Veena Flores MD REASON FOR CONSULTATION: Double vision with difficulty walking. HISTORY OF PRESENT ILLNESS: The patient is a 49-year-old man with history of stroke, bilateral DVTs in legs, pulmonary embolism, diabetes, hypertension, who was admitted at [facility] in 2019 due to ischemic stroke. He was at his baseline state of health until a couple of weeks ago when he started noticing double vision when looking towards right side. He had MRI scan of brain at [facility] which was reported as unremarkable for any acute disease. He went to [facility] as he was told in [facility] that they cannot find anything. He went to [facility] due to difficulty walking and falling towards left side, double vision which had worsened over a few days. Double vision was happening when he would look to left side lately. Emergency doctor from [facility] called us and we transferred him to [facility]. He cannot have MRI scan of brain at [facility] due to his IVC filter and 3 Juliana MRI scan here. The patient continues to have double vision which goes away by closing the right eye. He feels numbness of left side of face, mouth, tongue and left hand. He has difficulty ambulating and coordination. He denies trouble swallowing, dysarthria, urinary incontinence, weakness of arms and legs, falls, loss of consciousness or head injuries. PAST MEDICAL HISTORY: Stroke, bilateral leg DVT, pulmonary embolism, depression, diabetes, dry eyes, acid reflux, GI bleed, dyslipidemia, hypertension, untreated obstructive sleep apnea syndrome, anxiety, colonoscopy, circumcision, IVC filter placement, right knee and shoulder surgery. SOCIAL HISTORY: The patient used to smoke three packs a day and now has quit. He denies alcohol or illicit drugs. HOME MEDICATIONS: 1. Aspirin 81 mg p.o. daily. 2. Xarelto 20 mg p.o. daily. 3. Crestor 40 mg p.o. daily. 4. Vitamin D 125 mcg p.o. daily. 5. Omeprazole 40 mg p.o. daily. 6. Metformin 1000 mg p.o. b.i.d. 7. Metoprolol extended release 100 mg p.o. daily. 8. Irbesartan 300 mg p.o. daily. 9. Gabapentin 600 mg p.o. q.h.s. 10. Cymbalta 60 mg p.o. daily. 11. Dulaglutide 1.5 mg once a week. 12. Norvasc 10 mg p.o. daily. 13. Albuterol inhaler as needed. 14. Ertugliflozin-sitagliptin 15-100 mg p.o. daily. FAMILY HISTORY: Significant for coronary artery disease per father. REVIEW OF SYSTEMS: All systems are reviewed and found to be noncontributory except as mentioned in history of present illness. PHYSICAL EXAMINATION: VITAL SIGNS: Temperature 97.4, pulse 76, respiratory rate 18, blood pressure 128/76, 94% saturation on room air. HEART: Regular rate and rhythm. LUNGS: Clear to auscultation. ABDOMEN: Soft, nontender, nondistended. EXTREMITIES: No pedal edema. MUSCULOSKELETAL: No abnormalities. SKIN: No rash. NEUROLOGICAL: No signs of meningeal irritation. The patient is awake, alert, oriented to place, person and time. Normal speech, comprehension and repetition. Extraocular muscles are intact on the left side. He has restriction of right eye adduction. He has mild right-sided ptosis. No facial weakness. Tongue and uvula are midline. 5/5 strength in all four extremities. Deep tendon reflexes are 1+ in arms and knee and absent at ankles. He has decreased cold, pinprick, vibration sensation in his feet. His gait is very unsteady and ataxic. He tends to fall down unless holding hand or things around him. He cannot do tandem walking. He has decreased touch, cold sensation on his left side of face and arm. Romberg testing is positive. DIAGNOSTIC STUDIES: CBC was normal. ESR was 1. Triglycerides were 286, total cholesterol 99 with LDL 11 and HDL 31. His genetic testing for coagulopathy is pending. CT scan of head did not show acute disease. He cannot have MRI scan at [facility] due to his IVC filter. His MRI of brain in [facility] a week ago was unremarkable per history and emergency physician in [facility]. ASSESSMENT: 1. 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 2. History of prior stroke, DVT and pulmonary embolism. PLAN: 1. Repeat CT scan of head and perform CTA of head and neck with contrast. 2. Eye patch, physical and occupational therapy. 3. Aspirin 81 mg p.o. daily and Xarelto 20 mg p.o. daily. 4. Keep blood pressure below 180/100 during hospital stay with long-term blood pressure going below 130/80. 5. Follow with office in two weeks after hospital discharge. He may need inpatient rehabilitation.
[2020-10-15] MEDS: HumaLOG INSULIN (NovoLOG) PER UNIT SC SCH ×2 (09:34→13:33)
[2020-10-15] MEDS: ASPIRIN 81MG ENTERIC TABLET PO SCH (09:34)
[2020-10-15] MEDS: DULoxetine 30 MG CAP (CYMBALTA) PO SCH (09:34)
[2020-10-15] MEDS: OMEPRAZOLE 20 MG CAP PO SCH (09:35)
[2020-10-15] MEDS: GABAPENTIN 300 MG CAP PO SCH (09:35)
[2020-10-15 09:37] VITALS: BP 135/82
[2020-10-15] MEDS: IRBESARTAN 150MG TAB PO SCH (09:37)
[2020-10-15] MEDS: METOPROLOL SUCC (TopROL XL) 100MG *XL* TAB PO SCH (09:37)
[2020-10-15] MEDS: ROSUVASTATIN 10 MG TAB (CRESTOR) PO SCH (09:37)
--- NOTE | 2020-10-15 11:59 | ECHO ---
ECHOCARDIOGRAM DATE OF PROCEDURE: 10/14/2020 Age: 49 Gender: Height: Weight: REFERRING PROVIDER: Dr. Veena Flores. PATIENT LOCATION: Room 4217. REASON FOR STUDY: CVA. 2D MEASUREMENTS: IVS 1.6 cm LV 4.6 cm LVPW 1.6 cm LA 3.7 cm Aorta 3.6 cm IVC 1.9 cm DOPPLER MEASUREMENT Peak velocity across the aortic valve 1.4 m/s Peak velocity across the LVOT 0.9 m/s Mitral E 0.54 Mitral A 0.63 with a ratio of 0.9 2D COMMENTS: 1. Normal left ventricular size with mildly increased left ventricular wall thickness. Left ventricular systolic function is normal, estimated at 60 to 65%. 2. Normal left atrium. Normal right atrium and right ventricle. 3. The atrial septum appeared to be normal without evidence of defect or shunt. 4. Normal aortic root. 5. No pericardial effusion seen. 6. Minimally calcified mitral annulus with normal anterior mitral valve leaflet motion. Normal aortic valve, tricuspid valve, and pulmonic valve. The proximal pulmonary artery branches also appeared to be normal. 7. The inferior vena cava was minimally enlarged. DOPPLER: No significant valvular abnormalities detected. Abnormal relaxation pattern was noted across the mitral valve leaflets as well as the mitral valve annulus consistent with features of grade 1 left ventricular diastolic dysfunction. IMPRESSION: 1. Normal global left ventricular systolic function with probably moderate concentric left ventricular hypertrophy. There were some features of grade 1 left ventricular diastolic dysfunction manifested by abnormal relaxation. 2. Isolated mitral annulus calcification. 3. No significant valvular abnormalities detected.
--- NOTE | 2020-10-15 14:43 | DSES ---
DISCHARGE SUMMARY DATE OF ADMISSION: 10/13/2020 DATE OF DISCHARGE: 10/15/2020 CONSULTANTS DURING THIS ADMISSION: 1. Neurologist, Dr. Qamar Taveras. 2. Telegraph Service Rater, Dr. Rafael Christianson. 3. Centrifugal Station Operator, Dr. Kim Herman, consulted by telephone. PRIMARY DISCHARGE DIAGNOSES: 1. 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 2. History of prior cerebrovascular accident (CVA). 3. History of deep vein thrombosis (DVT). 4. History of saddle embolus, pulmonary embolism. DISCHARGE MEDICATIONS: - aspirin 81 mg daily - Xarelto 20 mg daily - Norvasc 10 mg daily - dulaglutide 1.5 mg subcutaneous weekly - duloxetine 60 mg daily - vitamin D 50,000 units weekly - Steglatro 15 mg daily - gabapentin 600 mg at bedtime, 300 mg daily - irbesartan 300 mg daily - metformin 1 gram twice a day - metoprolol 100 mg daily - omeprazole 40 mg daily - rosuvastatin 40 mg daily. HOSPITAL COURSE: This is a 49-year-old male who presented to the emergency room with complaints of diplopia, left leg weakness, leaning to the left side when he walks, and ataxia, presented to the emergency room with worsening double vision, unable to ambulate and ataxia, transferred from [facility] for neurological services at [facility]. The patient is compliant with his aspirin and Xarelto. Imaging study with MRI could not be performed due to inferior vena cava (IVC) filter. MRI of the brain at [facility] a week ago was unremarkable per history and emergency room (ER) physician at [facility]. CTA of the head and neck unremarkable. Neurologist recommended no changes in medications, but to keep the blood pressure below 180/100, but above 130/80. Patient was suspected to have a right-sided midbrain stroke causing diplopia, partial right-sided third nerve palsy, left-sided sensory symptoms with ataxia. Discussion with Dr. Herman, hematology/oncology, regarding the hypercoagulable workup with reagent tender helper suggesting checking for antiphospholipid syndrome. It is confirmed. Patient should be treated with warfarin and not a direct-acting anticoagulant. Patient had a patch, which improved his diplopia. He is not to drive a motorized vehicle or heavy machinery until he is cleared by the neurologist or Dr. Christianson. PHYSICAL EXAM ON DISCHARGE: VITAL SIGNS: Temperature 96.4, pulse 71, respiratory rate 18, blood pressure 135/82, 97% on room air. GENERAL: Patient is awake, alert, oriented to person, place and time, answering questions appropriately. The patient's speech is fluent. HEENT: The patient has a right eye unable to be adducted to the medial nasal field with right-sided ptosis. No facial asymmetry or facial droop. Tongue is midline. NEUROLOGIC: Motor function is 5/5 times four extremities. Patient has decreased sensation on his feet. Gait was not tested. Romberg is positive. Deep tendon reflexes (DTRs) are 1+ in bilateral upper extremities. EXTREMITIES: No cyanosis, clubbing or pitting edema. LUNGS: Clear to auscultation. No wheezing, rales or rhonchi. HEART: S1, S2. Sinus rhythm. ABDOMEN: Obese. Soft, nontender, nondistended. Positive bowel sounds. LABORATORY DATA: Laboratory data, imaging studies, microbiology: Please see the chart. TIME SPENT ON DISCHARGE: 30 minutes. MTDD
[2020-10-16 18:07] LABS: HEXAGONAL PHASE PHOSPHOLIPID 0 sec (0-11)
--- NOTE | 2020-10-16 18:29 | CR ---
CONSULTATION DATE: 10/15/2020 REASON FOR CONSULTATION: Double vision. HISTORY OF PRESENT ILLNESS: This is a 49-year-old male with a history of cerebrovascular accident (CVA) who is currently on aspirin and Xarelto, history of deep venous thrombosis (DVT) and pulmonary embolus, as well as other vasculopathic risk factors, who presented to the [facility] with complaints of diplopia approximately one week ago. The patient states that his vision was blurry and then became double throughout the day and he presented to the [facility]. He also notes there is some difficulty walking and he was bumping into objects on the left side of him. A CT scan was performed at the hospital at [place] and this was negative. He has no significant past ocular history, denies previous ocular surgeries, does not wear glasses and uses no ocular medications. He has no flashing photopsias, floaters or discharge. He has good vision in each eye individually and is able to see across the room without difficulty. Patient states that the double vision he is currently experiencing is worse upon looking to the left and then improved upon looking to the right. He has no headache or eye pain. PAST MEDICAL HISTORY: Significant for: 1. Ischemic cerebrovascular accident. 2. Deep venous thrombosis (DVT). 3. Pulmonary embolus. 4. Saddle embolus. 5. Diabetes. As well as others. Please see chart. SURGICAL HISTORY: Please see chart. PAST OCULAR HISTORY: Denies. PAST OCULAR SURGERIES: Denies. SOCIAL HISTORY: Patient is currently a pack a day smoker, but previously used to smoke up to three packs per day. CURRENT MEDICATIONS: See chart. FAMILY HISTORY: Coronary artery disease. REVIEW OF SYSTEMS: Negative besides what was described in the history of present illness. OCULAR EXAMINATION: He has 20/25 vision in the right eye, 20/25 vision in the left eye, uncorrected. His pupils are equal, round, reactive to light. Pupils are 4 in dark and 2 mm in light with no afferent pupillary defect (APD) present. His confrontation visual field is full to count fingers, both eyes. Ocular muscles are restricted on medial gaze in the right eye and has about 50% movement on medial gaze of the right eye. All other movements are normal except some subtle reduction in movement inferonasally in the right eye. The left eye is completely normal. A convergence check is mildly reduced on the right eye. Anterior segment exam revealed lids, lashes and adnexa within normal limits. There is no ptosis. The patient has conjunctivae and sclerae that are white and quiet and the anterior chamber is deep and quiet. The lens is clear. The iris is brown and flat. The cornea is clear without infiltrates or abrasions and dilated fundus exam is deferred at this time. It should be performed as an outpatient. ASSESSMENT AND PLAN: Right partial pupil-sparing third nerve palsy, which appears to be resolving at this time. There is no aneurysm detected on CTA. Given that an MRI could not be performed due to implanted hardware, likely this is secondary to a midbrain stroke, as per the neurology evaluation. I would recommend that this patient continue to patch until the diplopia resolves. We did discuss that if this does not resolve, prism glasses or surgery could be considered at the three month interval if he still has symptomatic diplopia. Further management here would be conducted as an outpatient. My number for the office is provided. Would suggest that the patient be checked in about 14 days or sooner, if there are any changes.
== END 2020-10-15 15:04 | disposition home or self-care (01) ==
LOC: INTOOBSV 17:25 → M MSPAV 17:25
PROVIDERS: ADMIT General Practice; ATTEND General Practice
DX: H53.2 Diplopia (principal); R27.0 Ataxia, unspecified; R20.9 Unspecified disturbances of skin sensation; G58.8 Other specified mononeuropathies; D68.61 Antiphospholipid syndrome; Z86.73 Personal history of transient ischemic attack (TIA), and cerebral infarction without residual deficits; Z86.718 Personal history of other venous thrombosis and embolism; Z86.711 Personal history of pulmonary embolism; M54.9 Dorsalgia, unspecified; H04.123 Dry eye syndrome of bilateral lacrimal glands; E11.9 Type 2 diabetes mellitus without complications; I10 Essential (primary) hypertension; F32.9 Major depressive disorder, single episode, unspecified; E78.5 Hyperlipidemia, unspecified; F41.9 Anxiety disorder, unspecified; G47.33 Obstructive sleep apnea (adult) (pediatric); K21.9 Gastro-esophageal reflux disease without esophagitis; K92.2 Gastrointestinal hemorrhage, unspecified; Z79.899 Other long term (current) drug therapy; Z79.01 Long term (current) use of anticoagulants; Z79.82 Long term (current) use of aspirin; Z79.84 Long term (current) use of oral hypoglycemic drugs; Z87.891 Personal history of nicotine dependence
CPT/HCPCS: 36415; 70450; 70496; 70498; 80048; 80053; 80061; 81240; 83036; 83735; 84443; 85025; 85598; 85613; 85652; 85730; 86038; 86146; 86147; 86148; 86431; 86849; 92526; 92610; 93306; 97161; 97165; 97530; Q9967